=== PATIENT | female | born 1940 | race Hispanic/Latino ===

== ENCOUNTER 2018-02-09 10:21 | Day surgery (SDC) | payer MEDICARE, BC ==
[2018-02-01 09:56] VITALS: BMI 27.4
[2018-02-09] MEDS ORDERED: Propofol 10 mg/ml Inj (20 ML) ONE (12:17)
[2018-02-09] MEDS ORDERED: Lidocaine 1% Inj (20ml) ONE (12:18)
[2018-02-09] MEDS ORDERED: Sodium Chloride 0.9% 1,000 ML IV SCH (12:45)
[2018-02-09 12:55] VITALS: TEMP 98
[2018-02-09 13:43] VITALS: RESP 16
[2018-02-09 13:44] VITALS: BP 121/66; PULSE 64; O2SAT 100
== END 2018-02-09 14:03 | disposition home or self-care (01) ==
LOC: ENDO 10:21
PROVIDERS: ATTEND Internal Medicine Gastroenterology
DX: Z12.11 Encounter for screening for malignant neoplasm of colon (principal); D12.2 Benign neoplasm of ascending colon; D12.4 Benign neoplasm of descending colon; K59.00 Constipation, unspecified; K57.30 Diverticulosis of large intestine without perforation or abscess without bleeding; K64.8 Other hemorrhoids; I25.10 Atherosclerotic heart disease of native coronary artery without angina pectoris; E78.5 Hyperlipidemia, unspecified; I10 Essential (primary) hypertension; M48.00 Spinal stenosis, site unspecified; Z90.721 Acquired absence of ovaries, unilateral; Z88.8 Allergy status to other drugs, medicaments and biological substances
CPT/HCPCS: 45380; 45385; 88305; J2704; J7030; J7040

== ENCOUNTER 2018-08-23 11:55 | Outpatient (CLI) | payer MEDICARE, BC | END 2018-08-23 11:56 | disposition home or self-care (01) | LOC: RAD 11:55 ==

== ENCOUNTER 2018-11-18 07:19 | Outpatient (CLI) | payer MEDICARE, BC | END 2018-11-18 07:20 | disposition home or self-care (01) | LOC: CARDIO 07:19 ==